=== PATIENT | male | born 1990 | race African-American/Black ===

== ENCOUNTER 2018-07-21 09:22 | Emergency (ER) | payer MEDICARE, MEDICAID ==
[~2018-07-21] VITALS: Ht 175.3 cm; Wt 77.3 kg
[~2018-07-21 09:22] MED LIST: AMLO-511 PO; CLON0.2T PO; LISI-660 PO; PHOSLOC PO; SEVE400 PO
[2018-07-21] MEDS ORDERED: TACR.5 PO (09:34)
[2018-07-21] MEDS ORDERED: PRED5 PO (09:34)
[2018-07-21] MEDS ORDERED: LOSA25TA41 PO (09:34)
[2018-07-21] MEDS ORDERED: NIFE10 PO (09:34)
[2018-07-21] MEDS ORDERED: SODIUM CHLORIDE 0.9% 1,000 ML IV ONE (09:45)
[2018-07-21] MEDS ORDERED: ONDANSETRON HCL 4 MG/2 ML VIAL IVP ONE (09:45)
[2018-07-21 10:16] LABS: BASOPHILS % (AUTO) 1.1 % (0.0-2.0); EOSINOPHILS % (AUTO) 2.7 % (1.0-6.0); HEMATOCRIT 36.5 % (41-53); HEMOGLOBIN 12.5 g/dL (13.5-17.5); LYMPHOCYTES # (AUTO) 1.2 K/uL (1.0-4.8); LYMPHOCYTES % (AUTO) 32.3 % (22.0-44.0); MEAN CORPUSCULAR HEMOGLOBIN 30.2 pg (26.0-34.0); MEAN CORPUSCULAR HGB CONC 34.2 G/dL (31.0-37.0); MEAN CORPUSCULAR VOLUME 88 fL (80-100); MONOCYTES # (AUTO) 0.3 K/uL (0.1-1.0); MONOCYTES % (AUTO) 9.5 % (2.0-9.0); NEUTROPHILS % (AUTO) 54.4 % (40.0-70.0); PLATELET COUNT (AUTO) 213 K/uL (150-450); RED BLOOD CELL COUNT(AUTO) 4.13 MIL/uL (4.50-5.90); RED CELL DISTRIBUTION WIDTH 12.9 % (11.5-14.5)
[2018-07-21 10:26] LABS: CALCIUM, TOTAL 8.5 mg/dL (8.8-10.5); CREATININE 2.43 mg/dL (0.60-1.30); POTASSIUM 3.9 mmol/L (3.5-5.1)
[2018-07-21 10:30] LABS: APPEARANCE,URINE CLEAR (CLEAR); BILIRUBIN,URINE NEGATIVE (NEGATIVE); GLUCOSE, URINE (UA) NEGATIVE (NEGATIVE); KETONES,URINE NEGATIVE (NEGATIVE); LEUKOCYTE ESTERASE ,URINE NEGATIVE (NEGATIVE); NITRATE,URINE NEGATIVE (NEGATIVE); OCCULT BLOOD,URINE SMALL (NEGATIVE); PROTEIN,URINE SEE CONFIRM (NEGATIVE); UROBILINOGEN,URINE 0.2 mg/dL (<=1.0)
[2018-07-21 10:34] LABS: ALBUMIN 2.8 g/dL (3.4-5.0); BILIRUBIN,TOTAL 0.2 mg/dL (0.1-1.0); TOTAL PROTEIN, SERUM 6.2 g/dL (6.4-8.2)
[2018-07-21 10:37] LABS: SULFOSALICYLIC ACID,URINE 3+ (Negative)
[2018-07-21 10:38] LABS: BACTERIA,URINE None Seen /HPF (None Seen); WBC,URINE 0-2 /HPF (0-5); YEAST,URINE Rare /HPF (None Seen)
[2018-07-21 10:39] LABS: SQUAMOUS EPITHELIAL CELL,UR Rare /LPF (None Seen)
[2018-07-21] MEDS ORDERED: MORPHINE SULFATE 4 MG/ML SYRINGE IVP ONE (10:45)
[2018-07-21] MEDS ORDERED: LORazepam 2 MG/ML VIAL IVP ONE (10:45)
[2018-07-21 10:55] VITALS: BP 152/94
== END 2018-07-21 11:44 | disposition home or self-care (01) ==
LOC: EMS 09:23
DX: R10.33 Periumbilical pain (principal); I10 Essential (primary) hypertension; Z88.8 Allergy status to other drugs, medicaments and biological substances
CPT/HCPCS: 36415; 80053; 81001; 83690; 85025; 96374; 96375; 99283; J2270; J2405; J7030

== ENCOUNTER 2018-09-04 20:57 | Emergency (ER) | payer MEDICARE, MEDICAID ==
[~2018-09-04] VITALS: Ht 175.3 cm; Wt 76.8 kg
[~2018-09-04 20:57] MED LIST changes: -AMLO-511 PO; -LISI-660 PO; +LOSA25TA41 PO; +NIFE10 PO; +PRED5 PO; +TACR.5 PO
[2018-09-04 21:04] VITALS: BP 150/98
[2018-09-04] MEDS ORDERED: PRED5 PO (21:10)
[2018-09-04] MEDS ORDERED: POTA25TA7 PO (21:10)
[2018-09-04 21:31] LABS: BASOPHILS % (AUTO) 0.5 % (0.0-2.0); EOSINOPHILS % (AUTO) 0.9 % (1.0-6.0); HEMATOCRIT 37.5 % (41-53); HEMOGLOBIN 12.7 g/dL (13.5-17.5); LYMPHOCYTES # (AUTO) 1.5 K/uL (1.0-4.8); LYMPHOCYTES % (AUTO) 13.4 % (22.0-44.0); MEAN CORPUSCULAR HEMOGLOBIN 29.6 pg (26.0-34.0); MEAN CORPUSCULAR HGB CONC 33.9 G/dL (31.0-37.0); MEAN CORPUSCULAR VOLUME 87 fL (80-100); MONOCYTES # (AUTO) 0.8 K/uL (0.1-1.0); MONOCYTES % (AUTO) 7.2 % (2.0-9.0); NEUTROPHILS # (AUTO) 8.7 K/uL (1.8-7.7); PLATELET COUNT (AUTO) 248 K/uL (150-450); RED BLOOD CELL COUNT(AUTO) 4.29 MIL/uL (4.50-5.90); RED CELL DISTRIBUTION WIDTH 13.6 % (11.5-14.5)
[2018-09-04 21:32] LABS: APPEARANCE,URINE CLEAR (CLEAR); BILIRUBIN,URINE NEGATIVE (NEGATIVE); GLUCOSE, URINE (UA) NEGATIVE (NEGATIVE); KETONES,URINE NEGATIVE (NEGATIVE); LEUKOCYTE ESTERASE ,URINE NEGATIVE (NEGATIVE); NITRATE,URINE NEGATIVE (NEGATIVE); OCCULT BLOOD,URINE MODERATE (NEGATIVE); PH,URINE 5.5 (5.0-8.0); PROTEIN,URINE SEE CONFIRM (NEGATIVE); UROBILINOGEN,URINE 0.2 mg/dL (<=1.0)
[2018-09-04 21:39] LABS: CREATININE 2.53 mg/dL (0.60-1.30); POTASSIUM 4.3 mmol/L (3.5-5.1)
[2018-09-04 21:45] LABS: ALBUMIN 3.2 g/dL (3.4-5.0); BILIRUBIN,TOTAL 0.2 mg/dL (0.1-1.0); TOTAL PROTEIN, SERUM 6.8 g/dL (6.4-8.2)
[2018-09-04 21:47] LABS: SULFOSALICYLIC ACID,URINE 4+ (Negative)
[2018-09-04 21:48] LABS: BACTERIA,URINE None Seen /HPF (None Seen); RBC,URINE 0-2 /HPF (0-2); WBC,URINE 0-2 /HPF (0-5)
[2018-09-04 21:49] LABS: SQUAMOUS EPITHELIAL CELL,UR Rare /LPF (None Seen)
[2018-09-04 21:50] LABS: COARSE GRANULAR CASTS,URINE 0-2 /LPF (None Seen)
== END 2018-09-04 23:00 | disposition left against medical advice (07) ==
LOC: EMS 20:58
DX: R10.33 Periumbilical pain (principal); I10 Essential (primary) hypertension; Z53.21 Procedure and treatment not carried out due to patient leaving prior to being seen by health care provider
CPT/HCPCS: 93005

== ENCOUNTER 2018-12-24 18:35 | Emergency (ER) | payer MEDICARE, MEDICAID ==
[~2018-12-24] VITALS: Ht 175.3 cm; Wt 72.7 kg
[~2018-12-24 18:35] MED LIST changes: -CLON0.2T PO; -PHOSLOC PO; +POTA25TA7 PO; -SEVE400 PO
[2018-12-24] MEDS ORDERED: MYCO360T PO (19:01)
[2018-12-24] MEDS ORDERED: TACR.5 PO (19:01)
[2018-12-24 20:48] LABS: BASOPHILS % (AUTO) 0.1 % (0.0-2.0); EOSINOPHILS % (AUTO) 0.2 % (1.0-6.0); HEMATOCRIT 43.2 % (41-53); HEMOGLOBIN 14.3 g/dL (13.5-17.5); LYMPHOCYTES # (AUTO) 0.8 K/uL (1.0-4.8); LYMPHOCYTES % (AUTO) 8.5 % (22.0-44.0); MEAN CORPUSCULAR HEMOGLOBIN 30.3 pg (26.0-34.0); MEAN CORPUSCULAR VOLUME 92 fL (80-100); MONOCYTES # (AUTO) 0.3 K/uL (0.1-1.0); MONOCYTES % (AUTO) 3.2 % (2.0-9.0); PLATELET COUNT (AUTO) 244 K/uL (150-450); RED BLOOD CELL COUNT(AUTO) 4.71 MIL/uL (4.50-5.90); RED CELL DISTRIBUTION WIDTH 14.2 % (11.5-14.5)
[2018-12-24 21:00] LABS: PROTHROMBIN TIME 10.1 SEC (9.4-11.6)
[2018-12-24 21:02] LABS: CALCIUM, TOTAL 9.4 mg/dL (8.8-10.5); CREATININE 2.91 mg/dL (0.60-1.30); POTASSIUM 5.7 mmol/L (3.5-5.1)
[2018-12-24 21:08] LABS: ALBUMIN 3.2 g/dL (3.4-5.0); BILIRUBIN,TOTAL 0.2 mg/dL (0.1-1.0); TOTAL PROTEIN, SERUM 7.1 g/dL (6.4-8.2)
[2018-12-24] MEDS ORDERED: SODIUM CHLORIDE 0.9% 1,000 ML IV ONE (21:30)
[2018-12-24] MEDS ORDERED: ALBUTEROL SULFATE 5 MG/ML 20 ML NEB SOLN [BULK] NEB ONE (21:30)
[2018-12-24 21:39] LABS: PLATELET MORPHOLOGY COMMENT NORMAL
[2018-12-24] MEDS ORDERED: ACETAMINOPHEN 500 MG TABLET PO ONE (23:15)
[2018-12-25 00:25] LABS: APPEARANCE,URINE CLEAR (CLEAR); BILIRUBIN,URINE NEGATIVE (NEGATIVE); GLUCOSE, URINE (UA) 100 mg/dL (NEGATIVE); KETONES,URINE NEGATIVE (NEGATIVE); LEUKOCYTE ESTERASE ,URINE NEGATIVE (NEGATIVE); NITRATE,URINE NEGATIVE (NEGATIVE); OCCULT BLOOD,URINE MODERATE (NEGATIVE); PH,URINE 5.5 (5.0-8.0); PROTEIN,URINE SEE CONFIRM (NEGATIVE); UROBILINOGEN,URINE 0.2 mg/dL (<=1.0)
[2018-12-25 00:34] LABS: BACTERIA,URINE None Seen /HPF (None Seen)
[2018-12-25 00:35] LABS: COARSE GRANULAR CASTS,URINE 0-2 /LPF (None Seen); FINE GRANULAR CASTS,URINE 0-2 /LPF (None Seen); HYALINE CASTS, URINE 0-2 /LPF (None Seen); SQUAMOUS EPITHELIAL CELL,UR None Seen /LPF (None Seen); SULFOSALICYLIC ACID,URINE 4+ (Negative)
[2018-12-25 00:58] LABS: CALCIUM, TOTAL 8.9 mg/dL (8.8-10.5); CREATININE 3.02 mg/dL (0.60-1.30); POTASSIUM 4.7 mmol/L (3.5-5.1)
[2018-12-25 01:03] LABS: ALBUMIN 2.7 g/dL (3.4-5.0); BILIRUBIN,TOTAL 0.2 mg/dL (0.1-1.0); TOTAL PROTEIN, SERUM 6.1 g/dL (6.4-8.2)
[2018-12-25 03:25] VITALS: BP 134/80
[2018-12-25 09:23] LABS: GLUCOSE,POINT OF CARE 106 MG/DL (70-110)
== END 2018-12-25 03:55 | disposition home or self-care (01) ==
LOC: EMS 20:49
DX: R53.81 Other malaise (principal); R53.83 Other fatigue; R79.89 Other specified abnormal findings of blood chemistry; I10 Essential (primary) hypertension; Z79.899 Other long term (current) drug therapy
CPT/HCPCS: 36415; 71045; 74176; 76770; 80053; 80197; 81001; 82962; 83880; 84484; 85025; 85610; 85730; 93005; 94640; 99284; J7030

== ENCOUNTER 2021-07-06 07:15 | Emergency (ER) | payer MEDICAID, MEDICARE ==
[~2021-07-06] VITALS: Ht 175.3 cm; Wt 77.3 kg
[~2021-07-06 07:15] MED LIST changes: +LOSA-370 PO; -LOSA25TA41 PO; +MYCO360T PO; -POTA25TA7 PO; +PRED-409 PO; -PRED5 PO; -TACR.5 PO; +TACR0.5C21 PO
[2021-07-06] MEDS ORDERED: AURYXIA PO (07:30)
[2021-07-06] MEDS ORDERED: APIX2.5T PO (07:30)
[2021-07-06] MEDS ORDERED: OMEP10 PO (07:30)
[2021-07-06] MEDS ORDERED: CLON1PAT12 TD (07:30)
[2021-07-06] MEDS ORDERED: MORPHINE SULFATE 4 MG/ML SYRINGE IVP ONE (07:45)
[2021-07-06 08:03] LABS: BASOPHILS % (AUTO) 1.3 % (0.0-2.0); HEMATOCRIT 26.4 % (41-53); HEMOGLOBIN 9.3 g/dL (13.5-17.5); LYMPHOCYTES # (AUTO) 1.3 K/uL (1.0-4.8); LYMPHOCYTES % (AUTO) 21.4 % (22.0-44.0); MEAN CORPUSCULAR HEMOGLOBIN 33.2 pg (26.0-34.0); MEAN CORPUSCULAR HGB CONC 35.2 G/dL (31.0-37.0); MEAN CORPUSCULAR VOLUME 94 fL (80-100); MONOCYTES # (AUTO) 0.7 K/uL (0.1-1.0); MONOCYTES % (AUTO) 11.9 % (2.0-9.0); NEUTROPHILS # (AUTO) 3.6 K/uL (1.8-7.7); NEUTROPHILS % (AUTO) 62.4 % (40.0-70.0); PLATELET COUNT (AUTO) 195 K/uL (150-450); RED CELL DISTRIBUTION WIDTH 15.1 % (11.5-14.5)
[2021-07-06 08:11] LABS: CALCIUM, TOTAL 8.5 mg/dL (8.8-10.5); CREATININE 16.72 mg/dL (0.60-1.30); POTASSIUM 4.4 mmol/L (3.5-5.1)
[2021-07-06 08:16] LABS: ALBUMIN 3.1 g/dL (3.4-5.0); BILIRUBIN,TOTAL 0.3 mg/dL (0.1-1.0); TOTAL PROTEIN, SERUM 6.5 g/dL (6.4-8.2)
[2021-07-06 08:38] VITALS: BP 185/125
== END 2021-07-06 09:52 | disposition home or self-care (01) ==
LOC: EMS 07:18
DX: R10.13 Epigastric pain (principal); D64.9 Anemia, unspecified; I10 Essential (primary) hypertension; Z79.899 Other long term (current) drug therapy
CPT/HCPCS: 36415; 74176; 80053; 83690; 85025; 96374; 99284; J2270

== ENCOUNTER 2021-07-15 13:10 | Inpatient (IN) | payer MEDICAID ==
[~2021-07-15] VITALS: Ht 175.3 cm; Wt 77.3 kg
[~2021-07-15 13:10] MED LIST changes: +APIX2.5T PO; +AURYXIA PO; +CLON1PAT12 TD; +OMEP10 PO
[2021-07-15] MEDS ORDERED: CINA30 PO (14:11)
[2021-07-15] MEDS ORDERED: GABA-1216 PO (14:11)
[2021-07-15] MEDS ORDERED: OMEP20 PO (14:11)
[2021-07-15] MEDS ORDERED: IRBE150T51 PO (14:11)
[2021-07-15] MEDS ORDERED: ONDA-104 PO (14:11)
[2021-07-15] MEDS ORDERED: CALC0.2521 PO (14:11)
[2021-07-15] MEDS ORDERED: CARV25 PO (14:11)
[2021-07-15] MEDS ORDERED: MINO2.5 PO (14:11)
[2021-07-15] MEDS ORDERED: DOCU-270 PO (14:11)
[2021-07-15] MEDS ORDERED: PRED1 PO (14:11)
[2021-07-15 15:13] LABS: BASOPHILS % (AUTO) 0.9 % (0.0-2.0); EOSINOPHILS % (AUTO) 0.9 % (1.0-6.0); HEMATOCRIT 31.5 % (41-53); HEMOGLOBIN 10.7 g/dL (13.5-17.5); LYMPHOCYTES # (AUTO) 0.7 K/uL (1.0-4.8); MEAN CORPUSCULAR HGB CONC 34.1 G/dL (31.0-37.0); MEAN CORPUSCULAR VOLUME 97 fL (80-100); MONOCYTES # (AUTO) 0.4 K/uL (0.1-1.0); MONOCYTES % (AUTO) 6.6 % (2.0-9.0); NEUTROPHILS # (AUTO) 5.1 K/uL (1.8-7.7); NEUTROPHILS % (AUTO) 80.6 % (40.0-70.0); PLATELET COUNT (AUTO) 215 K/uL (150-450); RED BLOOD CELL COUNT(AUTO) 3.25 MIL/uL (4.50-5.90); RED CELL DISTRIBUTION WIDTH 16.2 % (11.5-14.5)
[2021-07-15] MEDS ORDERED: NITROGLYCERIN 50 MG/D5% WATER 250 ML IV PRN (15:15)
[2021-07-15] MEDS ORDERED: VALS160T31 PO (15:18)
[2021-07-15] MEDS ORDERED: FERR210T PO (15:18)
[2021-07-15] MEDS ORDERED: CLON1PAT13 TD (15:18)
[2021-07-15] MEDS ORDERED: APIX5TAB PO (15:18)
[2021-07-15 15:31] LABS: CALCIUM, TOTAL 8.6 mg/dL (8.8-10.5); CREATININE 17.24 mg/dL (0.60-1.30); POTASSIUM 5.2 mmol/L (3.5-5.1)
[2021-07-15 15:33] LABS: INR 1.1 (0.9-1.1); PROTHROMBIN TIME 11.6 SEC (9.4-11.6)
[2021-07-15] MEDS ORDERED: ACETAMINOPHEN 500 MG TABLET PO ONE (15:45)
[2021-07-15 15:52] LABS: ALBUMIN 3.7 g/dL (3.4-5.0); BILIRUBIN,TOTAL 0.4 mg/dL (0.1-1.0); MAGNESIUM 2.5 mg/dL (1.80-2.40); PHOSPHORUS 6.9 mg/dL (2.5-4.9); TOTAL PROTEIN, SERUM 7.7 g/dL (6.4-8.2)
[2021-07-15] MEDS ORDERED: ZOLPIDEM TARTRATE 5 MG TABLET PO PRN (16:15)
[2021-07-15] MEDS ORDERED: ACETAMINOPHEN 325 MG TABLET PO PRN (16:15)
[2021-07-15] MEDS ORDERED: MAGNESIUM HYDROXIDE SUSPENSION 30 ML UDCUP PO PRN (16:15)
[2021-07-15] MEDS ORDERED: MORPHINE SULFATE 2 MG/ML SYRINGE IVP PRN (16:15)
[2021-07-15] MEDS ORDERED: ONDANSETRON HCL 4 MG/2 ML VIAL IVP PRN (16:15)
[2021-07-15] MEDS ORDERED: BISACODYL 10 MG RECTAL RECTAL SUPPOSITORY PR PRN (16:15)
[2021-07-15] MEDS ORDERED: HydrALAZINE HCL 20 MG/ML VIAL IVP PRN (16:15)
[2021-07-15] MEDS ORDERED: MORPHINE SULFATE 2 MG/ML SYRINGE IVP ONE (16:30)
[2021-07-15] MEDS: HYDROCODONE/ACETAMINOPHEN 5-325 MG TABLET PO PRN (17:03)
[2021-07-15] MEDS: APIXABAN 5 MG TABLET PO SCH (20:09)
[2021-07-15] MEDS: DOCUSATE SODIUM 100 MG CAPSULE PO SCH (20:09)
[2021-07-15] MEDS: NIFEdipine 10 MG CAPSULE PO SCH (20:39)
[2021-07-15] MEDS: MINOXIDIL 2.5 MG TABLET PO SCH (20:39)
[2021-07-15] MEDS: CINACALCET HCL 30 MG TABLET PO SCH (20:40)
[2021-07-15] MEDS: CARVEDILOL 25 MG TABLET PO SCH (20:40)
[2021-07-15 20:43] LABS: COVID AG,FIA SOURCE NASOPHARYNGEAL
[2021-07-15 20:50] LABS: APPEARANCE,URINE CLEAR (CLEAR); BILIRUBIN,URINE NEGATIVE (NEGATIVE); GLUCOSE, URINE (UA) NEGATIVE (NEGATIVE); KETONES,URINE NEGATIVE (NEGATIVE); LEUKOCYTE ESTERASE ,URINE NEGATIVE (NEGATIVE); NITRATE,URINE NEGATIVE (NEGATIVE); OCCULT BLOOD,URINE TRACE (NEGATIVE); PH,URINE 6.5 (5.0-8.0); PROTEIN,URINE POS 1+ (NEGATIVE); UROBILINOGEN,URINE 0.2 mg/dL (<=1.0)
[2021-07-15 21:27] LABS: BACTERIA,URINE None Seen /HPF (None Seen); RBC,URINE None Seen /HPF (0-2)
[2021-07-15 21:28] LABS: WBC,URINE 0-2 /HPF (0-5)
[2021-07-15] MEDS ORDERED: SODIUM ZIRCONIUM CYCLOSILICATE 5 GM POWDER PACKET PO ONE (22:15)
[2021-07-16 00:35] VITALS: BP 138/87
[2021-07-16] MEDS: HYDROCODONE/ACETAMINOPHEN 5-325 MG TABLET PO PRN ×2 (01:04→08:42)
[2021-07-16 04:45] VITALS: BP 137/81
[2021-07-16 08:00] VITALS: BP 141/79
[2021-07-16 08:32] LABS: BASOPHILS % (AUTO) 0.9 % (0.0-2.0); EOSINOPHILS % (AUTO) 2.2 % (1.0-6.0); HEMATOCRIT 28.7 % (41-53); LYMPHOCYTES # (AUTO) 1.4 K/uL (1.0-4.8); LYMPHOCYTES % (AUTO) 27.7 % (22.0-44.0); MEAN CORPUSCULAR HEMOGLOBIN 33.4 pg (26.0-34.0); MEAN CORPUSCULAR HGB CONC 34.8 G/dL (31.0-37.0); MEAN CORPUSCULAR VOLUME 96 fL (80-100); MONOCYTES # (AUTO) 0.5 K/uL (0.1-1.0); MONOCYTES % (AUTO) 10.5 % (2.0-9.0); NEUTROPHILS % (AUTO) 58.7 % (40.0-70.0); PLATELET COUNT (AUTO) 178 K/uL (150-450); RED BLOOD CELL COUNT(AUTO) 2.99 MIL/uL (4.50-5.90); RED CELL DISTRIBUTION WIDTH 16.2 % (11.5-14.5)
[2021-07-16] MEDS: NIFEdipine 10 MG CAPSULE PO SCH (08:34)
[2021-07-16 08:35] LABS: CALCIUM, TOTAL 7.7 mg/dL (8.8-10.5); CREATININE 18.37 mg/dL (0.60-1.30); POTASSIUM 4.5 mmol/L (3.5-5.1)
[2021-07-16] MEDS: CARVEDILOL 25 MG TABLET PO SCH (08:35)
[2021-07-16] MEDS: CINACALCET HCL 30 MG TABLET PO SCH (08:35)
[2021-07-16] MEDS: MINOXIDIL 2.5 MG TABLET PO SCH (08:36)
[2021-07-16] MEDS: DOCUSATE SODIUM 100 MG CAPSULE PO SCH (08:36)
[2021-07-16] MEDS: APIXABAN 5 MG TABLET PO SCH (08:36)
[2021-07-16] MEDS ORDERED: TACROLIMUS 0.5 MG CAPSULE PO SCH (09:00)
[2021-07-16] MEDS ORDERED: VALSARTAN 160 MG TABLET PO SCH (09:00)
[2021-07-16] MEDS ORDERED: PANTOPRAZOLE SODIUM 40 MG DR TABLET PO SCH (09:00)
[2021-07-16] MEDS ORDERED: GABAPENTIN 100 MG CAPSULE PO SCH (09:00)
[2021-07-16] MEDS ORDERED: CALCITRIOL 0.25 MCG CAPSULE PO SCH (09:00)
[2021-07-16 12:00] VITALS: BP 124/69
[2021-07-16] MEDS ORDERED: NIFE10 PO (12:12)
[2021-07-16] MEDS ORDERED: CLON1PAT13 TD (12:12)
[2021-07-16] MEDS ORDERED: MINO2.5 PO (12:12)
[2021-07-16] MEDS ORDERED: CARV25 PO (12:12)
[2021-07-16] MEDS ORDERED: VALS160T31 PO (12:12)
[2021-07-22] MEDS ORDERED: CloNIDine 0.2 MG/24 HOUR PATCH TD SCH (09:00)
== END 2021-07-16 15:45 | disposition home or self-care (01) | DRG 199 ==
LOC: EMS 14:00 → 5S 07-16 00:20
PROVIDERS: ADMIT Internal Medicine; ATTEND Internal Medicine
DX: I16.1 Hypertensive emergency (principal); D63.1 Anemia in chronic kidney disease; N18.6 End stage renal disease; I12.0 Hypertensive chronic kidney disease with stage 5 chronic kidney disease or end stage renal disease; E21.3 Hyperparathyroidism, unspecified; Z20.822 Contact with and (suspected) exposure to COVID-19; E87.5 Hyperkalemia; Z79.01 Long term (current) use of anticoagulants; Z79.899 Other long term (current) drug therapy; Z86.718 Personal history of other venous thrombosis and embolism; Z94.0 Kidney transplant status; Z99.2 Dependence on renal dialysis
CPT/HCPCS: 71045; 80048; 80053; 81001; 82550; 83735; 83880; 84100; 84484; 85025; 85610; 85730; 86850; 86900; 86901; 93005; 99291; G0378; J0360; J2270; J2405; Q9967; 36415-L1; 36415-TC

== ENCOUNTER 2021-09-11 00:21 | Emergency (ER) | payer MEDICAID, OTHER ==
[~2021-09-11] VITALS: Ht 175.3 cm; Wt 77.3 kg
[~2021-09-11 00:21] MED LIST changes: -APIX2.5T PO; +APIX5TAB PO; -AURYXIA PO; +CALC0.2521 PO; +CARV25 PO; +CINA30 PO; -CLON1PAT12 TD; +CLON1PAT13 TD; +DOCU-270 PO; +FERR210T PO; +GABA-1216 PO; -LOSA-370 PO; +MINO2.5 PO; -OMEP10 PO; +OMEP20 PO; +ONDA-104 PO; -PRED-409 PO; +PRED1 PO; +VALS160T31 PO
[2021-09-11 00:57] LABS: BASOPHILS % (AUTO) 0.8 % (0.0-2.0); EOSINOPHILS % (AUTO) 3.8 % (1.0-6.0); HEMOGLOBIN 7.9 g/dL (13.5-17.5); LYMPHOCYTES # (AUTO) 1.4 K/uL (1.0-4.8); LYMPHOCYTES % (AUTO) 21.8 % (22.0-44.0); MEAN CORPUSCULAR HEMOGLOBIN 31.8 pg (26.0-34.0); MEAN CORPUSCULAR HGB CONC 34.2 G/dL (31.0-37.0); MEAN CORPUSCULAR VOLUME 93 fL (80-100); MONOCYTES # (AUTO) 0.8 K/uL (0.1-1.0); MONOCYTES % (AUTO) 12.3 % (2.0-9.0); NEUTROPHILS % (AUTO) 61.3 % (40.0-70.0); PLATELET COUNT (AUTO) 158 K/uL (150-450); RED BLOOD CELL COUNT(AUTO) 2.48 MIL/uL (4.50-5.90); RED CELL DISTRIBUTION WIDTH 14.3 % (11.5-14.5)
[2021-09-11] MEDS ORDERED: DICYCLOMINE HCL 20 MG TABLET PO ONE (01:00)
[2021-09-11 01:08] LABS: CALCIUM, TOTAL 9.3 mg/dL (8.8-10.5); POTASSIUM 4.5 mmol/L (3.5-5.1)
[2021-09-11] MEDS ORDERED: LOSA-382 PO (01:13)
[2021-09-11] MEDS ORDERED: CARV25 PO (01:13)
[2021-09-11] MEDS ORDERED: MORPHINE SULFATE 4 MG/ML SYRINGE IVP ONE (01:15)
[2021-09-11 01:16] LABS: ALBUMIN 3.3 g/dL (3.4-5.0); BILIRUBIN,TOTAL 0.3 mg/dL (0.1-1.0); TOTAL PROTEIN, SERUM 7.3 g/dL (6.4-8.2)
[2021-09-11 01:18] LABS: CREATININE 20.71 mg/dL (0.60-1.30)
[2021-09-11 03:59] VITALS: BP 122/77
== END 2021-09-11 04:41 | disposition home or self-care (01) ==
LOC: EMS 00:26
DX: K52.9 Noninfective gastroenteritis and colitis, unspecified (principal); I12.0 Hypertensive chronic kidney disease with stage 5 chronic kidney disease or end stage renal disease; N18.6 End stage renal disease; Z99.2 Dependence on renal dialysis
CPT/HCPCS: 36415; 74176; 80053; 83690; 85025; 96374; 99284; J2270